=== PATIENT | female | born 1965 | race American Indian/Alaskan Native ===

== ENCOUNTER 2016-10-11 13:35 | Emergency (ER) | payer BC, OTHER ==
[2016-10-11 16:12] LABS: Alanine Aminotransferase 54 units/L (7-56); Albumin 4.7 g/dL (3.9-5); Albumin/Globulin Ratio 1.1 %; Alkaline Phosphatase 109 units/L (35-129); Anion Gap 16 mmol/L; Bilirubin,Total 0.6 mg/dL (0.1-1.2); Blood Urea Nitrogen 10 mg/dL (7-17); Calcium 10.2 mg/dL (8.4-10.2); Carbon Dioxide 30 mmol/L (22-30); Chloride 89.1 mmol/L (98-107); Glucose 368 mg/dL (65-100); Lipase 54 units/L (13-60); Potassium 4.5 mmol/L (3.6-5.0); Sodium 131 mmol/L (137-145)
[2016-10-11 16:40] LABS: Basophils % (Auto) 0.6 % (0.0-1.8); Eosinophils % (Auto) 1.2 % (0.0-4.3); Hematocrit 46.2 % (30.3-42.9); Hemoglobin 16.1 gm/dl (10.1-14.3); Mean Corpuscular HGB Conc 35 % (30-34); Mean Corpuscular Hemoglobin 31 pg (28-32); Mean Corpuscular Volume 89 fl (79-97); Platelet Count 280 K/mm3 (140-440); Red Blood Count 5.19 M/mm3 (3.65-5.03); White Blood Count 9.6 K/mm3 (4.5-11.0)
[2016-10-11] MEDS ORDERED: NACL 0.9% 1000 ML 1,000 ML IV ONE ×2 (16:55→19:03)
[2016-10-11] MEDS ORDERED: ZOFRAN IV ONE ×2 (16:55→20:33)
--- NOTE | 2016-10-11 16:58 | Emergency Department Report ---
HPI - General Chief Complaint: Abdominal Pain Time Seen by Provider: 10/11/16 16:45 - HPI HPI: This is a 51-year-old -[place] female who presents to the emergency department, driven in by her , with complaint of a three-day history of nausea and vomiting. She denies any significant abdominal pain but says the generalized abdomen is sore from all the vomiting. She denies any fever, dysuria, vaginal bleeding, vaginal discharge, diarrhea. She was recently diagnosed with gastroparesis one month ago by her director of community services, Dr. Hernandez. Her primary care doctor is Dr. Thompson. She has been trying some oral Zofran and Phenergan for symptoms without relief and she ends up vomiting up the pills. No recent travel or sick contacts at home. She also has a history of [id number] diabetes. She has past surgical history of hysterectomy, lap band surgery, ovarian cyst removal, laminectomy and tubal repairs 3. ED Past Medical Hx - Past Medical History Hx Diabetes: Yes (NIDDM) Hx GERD: Yes (Hx) Hx Psychiatric Treatment: Yes (anxiety, depression) Additional medical history: high cholesterol. bulging discs - Surgical History Hx Cholecystectomy: Yes Additional Surgical History: hysterectomy. tubal repairs x 3. lap band. right ankle surgery. ovarian cysts removed. laminectomy - Social History Smoking Status: Never Smoker Substance Use Type: None - Medications Home Medications: Home Medications Medication Instructions Recorded Confirmed Last Taken Type PARoxetine CR (NF) [Paxil] 40 mg PO QDAY 07/22/13 10/11/16 3 Days Ago History clonazePAM [KlonoPIN] 0.5 mg PO QDAY 07/22/13 10/11/16 3 Days Ago History Tramadol HCl [Tramadol HCl] 50 mg PO BID 12/22/13 10/11/16 05/22/16 History Ciprofloxacin HCl [Ciprofloxacin 500 mg PO Q12H #20 tab 05/23/16 10/11/16 Unknown Rx TAB] Diphenhydramine HCl [Benadryl 50 mg PO QHS PRN 05/23/16 10/11/16 Unknown History Allergy TAB] HYDROcodone/APAP 10-325 [[place] 1 each PO Q6HR PRN #20 tablet 05/23/16 10/11/16 Unknown Rx 10/325] Liraglutide [Victoza 2-Galdino] 1.2 mg SQ QDAY 05/23/16 10/11/16 1 Day Ago History 1.2 Lisinopril [Zestril TAB] 10 mg PO QDAY 05/23/16 10/11/16 3 Days Ago History Promethazine [Phenergan TAB] 12.5 mg PO Q8HR PRN 05/23/16 10/11/16 1 Day Ago History Ondansetron [Zofran Odt] 4 mg PO Q8HR PRN #12 tab.rapdis 10/12/16 Unknown Rx Promethazine [Phenergan] 25 mg IN Q8H PRN #10 supp.rect 10/12/16 Unknown Rx ED Review of Systems ROS: Stated complaint: N/V/GASTROPRESIS/ELEV BS Other details as noted in HPI Comment: All other systems reviewed and negative Constitutional: denies: chills, fever Eyes: denies: eye pain, eye discharge, vision change ENT: denies: ear pain, throat pain Respiratory: denies: cough, shortness of breath, wheezing Cardiovascular: denies: chest pain, palpitations Gastrointestinal: abdominal pain, nausea, vomiting Genitourinary: denies: urgency, dysuria, discharge Musculoskeletal: denies: back pain, joint swelling, arthralgia Skin: denies: rash, lesions Neurological: denies: headache, weakness, paresthesias Physical Exam - Physical Exam Vital Signs: Vital Signs 10/11/16 10/11/16 10/11/16 15:19 16:46 16:52 Temperature 98.2 F Pulse Rate 90 Respiratory 16 10 L 20 Rate Blood Pressure 154/95 O2 Sat by Pulse 95 99 98 Oximetry Physical Exam: GENERAL: The patient is well-developed well-nourished. HEENT: Normocephalic. Atraumatic. Extraocular motions are intact. Patient has moist mucous membranes. Pupils equal reactive to light bilaterally. NECK: Supple. Trachea is midline. CHEST/LUNGS: Clear to auscultation. There is no respiratory distress noted. HEART/CARDIOVASCULAR: Regular. There is no tachycardia. There is no gallop rub or murmur. ABDOMEN: Abdomen is soft. Very mild tenderness to palpation of the generalized abdomen. No guarding rebound tenderness. Patient has normal bowel sounds. There is no abdominal distention. SKIN: Skin is warm and dry. NEURO: The patient is awake, alert, and oriented. The patient is cooperative. The patient has no focal neurologic deficits. The patient has normal speech. MUSCULOSKELETAL: There is no tenderness or deformity. There is no limitation range of motion. There is no evidence of acute injury. ED Course Vital Signs 10/11/16 10/11/16 10/11/16 15:19 16:46 16:52 Temperature 98.2 F Pulse Rate 90 Respiratory 16 10 L 20 Rate Blood Pressure 154/95 O2 Sat by Pulse 95 99 98 Oximetry ED Medical Decision Making - Lab Data Result diagrams: 10/11/16 15:34 10/11/16 15:34 - Radiology Data Radiology results: image reviewed interpreted by me: X-ray shows some nonspecific nonobstructive bowel gas and there is some stool throughout the colon. - Medical Decision Making 51 year old female with history of diabetic gastroparesis presents with some hyperglycemia and a 3 day history of some nausea and vomiting. Patient labs are mostly unremarkable other than the hyperglycemia. There is no elevated anion gap and the patient does not appear to be in diabetic ketoacidosis. Patient was given a few rounds of Zofran, 1 dose of Reglan and IV fluid resuscitation. She was also given a dose of IV insulin. Patient's blood sugar is now down to about 250. Patient was able to display the ability to keep down some ice chips and water and appears to be improved. Vital signs stable throughout her ED course including being afebrile. She has good follow-up with primary care and gastroenterology. She will be discharged home with Zofran ODT and Phenergan suppositories so that she can increase her oral rehydration and continue taking her medications including her diabetes meds. She will return to the ER with any intractable vomiting and inability to keep down fluid or any acute distress. - Differential Diagnosis gastroparesis, colitis, DKA Critical Care Time: No Critical care attestation.: If time is entered above; I have spent that time in minutes in the direct care of this critically ill patient, excluding procedure time. ED Disposition Clinical Impression: Diabetic gastroparesis, Hyperglycemia, Dehydration Nausea and vomiting Qualifiers: Vomiting type: unspecified Vomiting Intractability: non-intractable Qualified Code(s): R11.2 - Nausea with vomiting, unspecified Disposition: DISCHARGED TO HOME OR SELFCARE Is pt being admited?: No Condition: Stable Instructions: Abdominal Pain (ED), Diabetic Hyperglycemia (ED), Dehydration (ED ), Acute Nausea and Vomiting (ED) Additional Instructions: Increase your oral rehydration. Follow-up with your primary care and gastroenterology physicians. Return to the emergency department with the inability to keep down fluid and rehydrate himself or with any acute distress. Try to stay away from foods that are high in carbohydrates, sugar and starches to assist with your diabetes. Prescriptions: Ondansetron [Zofran Odt] 4 mg PO Q8HR PRN #12 tab.rapdis PRN Reason: Nausea Promethazine [Phenergan] 25 mg IN Q8H PRN #10 supp.rect PRN Reason: Nausea Referrals: MARY ANN THOMPSON MD [Primary Care Provider] - 3-5 Days MEGAN HERNANDEZ MD [Staff Physician] - 3-5 Days Time of Disposition: 00:10
[2016-10-11 18:06] VITALS: BP 122/85
[2016-10-11] MEDS ORDERED: MORPHINE IV ONE (18:30)
[2016-10-11 20:57] LABS: Bilirubin,Urine NEG (Negative); Blood,Urine NEG (Negative); Ketones,Urine 20 mg/dL (Negative); Leukocyte Esterase,Urine NEG (Negative); Mucus,Urine FEW /HPF; Nitrite,Urine NEG (Negative); Urobilinogen,Urine < 2.0 mg/dL (<2.0); WBC,Urine < 1.0 /HPF (0.0-6.0)
[2016-10-11] MEDS ORDERED: BENADRYL IV ONE (21:53)
[2016-10-11] MEDS ORDERED: REGLAN IV ONE (21:53)
--- NOTE | 2016-10-12 10:01 | XRay Report ---
ABDOMEN, 2 views: History: Abdominal pain. There is no evidence of free air beneath the diaphragms. The gas pattern within the abdomen is unremarkable. There is no evidence of bowel dilatation, significant air-fluid levels, or pathologic calcifications. Organ shadows are unremarkable. A LAP band is identified which grossly appears in good position. IMPRESSION: Unremarkable abdomen.
== END 2016-10-12 01:33 | disposition home or self-care (01) ==
LOC: ED 13:35
DX: E11.43 Type 2 diabetes mellitus with diabetic autonomic (poly)neuropathy (principal); K31.84 Gastroparesis; E11.65 Type 2 diabetes mellitus with hyperglycemia; E86.0 Dehydration; R11.2 Nausea with vomiting, unspecified; K21.9 Gastro-esophageal reflux disease without esophagitis; F41.9 Anxiety disorder, unspecified; F32.9 Major depressive disorder, single episode, unspecified; E78.00 Pure hypercholesterolemia, unspecified
CPT/HCPCS: 36415; 74020; 80053; 81001; 82962; 83690; 85025; 96361; 96374; 96375; 96376; 99284; J1200; J2270; J2405; J2765; J7030; J1815